=== PATIENT | male | born 1980 | race Caucasian/White ===

== ENCOUNTER 2019-03-05 22:44 | Emergency (ER) | payer OTHER ==
[~2019-03-05] VITALS: Ht 190.5 cm; Wt 77.1 kg
== END 2019-03-06 00:05 | disposition home or self-care (01) ==
LOC: ER 22:44
DX: M76.9 Unspecified enthesopathy, lower limb, excluding foot (principal); F17.210 Nicotine dependence, cigarettes, uncomplicated
CPT/HCPCS: 99283-25

== ENCOUNTER 2019-10-01 19:37 | Emergency (ER) | payer OTHER ==
[~2019-10-01] VITALS: Ht 190.5 cm; Wt 68.0 kg
== END 2019-10-01 22:02 | disposition home or self-care (01) ==
LOC: ER 19:37
DX: S61.012A Laceration without foreign body of left thumb without damage to nail, initial encounter (principal); F17.200 Nicotine dependence, unspecified, uncomplicated; W26.0XXA Contact with knife, initial encounter
CPT/HCPCS: 12002; 99282-25; A9270-GY